=== PATIENT | female | born 1955 | race Caucasian/White ===

== ENCOUNTER 2020-02-15 08:00 | Outpatient (CLI) | payer MEDICARE | END 2020-02-15 16:10 | disposition home or self-care (01) | LOC: D.MAMMO 08:00 | PROVIDERS: ATTEND Nurse Practitioner Family | DX: Z12.31 Encounter for screening mammogram for malignant neoplasm of breast (principal) ==

== ENCOUNTER 2020-04-26 15:00 | Outpatient (CLI) | payer MEDICARE | END 2020-04-26 23:59 | disposition home or self-care (01) | LOC: D.MAMMO 15:00 | PROVIDERS: ATTEND Nurse Practitioner Family | DX: R92.8 Other abnormal and inconclusive findings on diagnostic imaging of breast (principal) ==